=== PATIENT | male | born 1940 | race Caucasian/White ===

== ENCOUNTER 2020-01-10 11:06 | Outpatient (CLI) | payer MEDICARE, SELFPAY ==
--- NOTE | ~2020-01-10 | XR_ITS ---
EXAMINATION: XR chest 2V EXAM DATE: 01/10/2020 11:32 INDICATION: Dyspnea. Checking for CHF. TECHNIQUE: Frontal and lateral projections of the chest obtained and reviewed. Comparison is made to prior examination from 09/03/2019. FINDINGS: There is possible 1 cm nodule projecting over the spine on the lateral projection. Follow- up nonemergent chest CT is recommended. No acute airspace disease, pneumothorax or pleural effusion. Cardiomediastinal silhouette is normal. IMPRESSION: Indeterminate nodular density; follow-up nonemergent chest CT. No acute findings. Reviewed, dictated and finalized at location A. ING SAFETY OFFICER
[2020-01-10 11:23] LABS: Basophils Absolute Auto 0.12 K/mm3 (0.00-0.10); Basophils Percent Auto 1.4 % (0.0-1.0); Eosinophils Absolute Auto 0.35 K/mm3 (0.02-0.50); Eosinophils Percent Auto 4.2 % (1.0-6.0); Hematocrit 44.2 % (37.0-46.0); Hemoglobin 15.2 g/dL (12.4-15.3); Immature Granulocyte Absolute 0.03 K/mm3 (0.00-0.00); Immature Granulocyte Percent A 0.4 % (0.0-0.0); Lymphocytes Absolute Auto 2.13 K/mm3 (1.10-4.50); Lymphocytes Percent Auto 25.4 % (18.0-42.0); Mean Corpuscular HGB Conc 34.4 g/dL (32.0-36.0); Mean Corpuscular Hemoglobin 31.6 pg (27.0-31.0); Mean Corpuscular Volume 91.9 fL (78.0-102.0); Mean Platelet Volume 9.6 fl (8.7-11.0); Monocytes Absolute Auto 1.21 K/mm3 (0.10-0.90); Monocytes Percent Auto 14.4 % (2.0-11.0); Neutrophils Absolute Auto 4.6 K/mm3 (1.7-7.2); Neutrophils Percent Auto 54.2 % (50.0-70.0); Platelet Count Result 284 K/mm3 (150-420); Red Blood Count 4.81 M/mm3 (4.70-6.10); Red Cell Distribution Width 14.3 % (11.6-14.4); White Blood Count 8.4 K/mm3 (4.8-10.8)
[2020-01-10 11:34] LABS: Anion Gap 16.4 mmol/L (7-16); Blood Urea Nitrogen 21 mg/dL (7-18); Calcium 9.1 mg/dL (8.5-10.1); Carbon Dioxide 25 mmol/L (21-32); Chloride 102 mmol/L (98-108); Estimated Glomerular Filt Rate 56; Glucose 216 mg/dL (70-99); Osmolality Calculated 298 mOsm/kg (285-295); Potassium 4.4 mmol/L (3.5-5.1); Sodium 139 mmol/L (136-145)
[2020-01-10 11:44] LABS: BNP 212 pg/mL (0-100)
== END 2020-01-10 11:07 | disposition home or self-care (01) ==
LOC: CHSLAB 11:12
PROVIDERS: PCP Internal Medicine; Visit Provider Internal Medicine
DX: R06.00 Dyspnea, unspecified (principal); I50.9 Heart failure, unspecified
CPT/HCPCS: 36415; 71046; 80048; 83880; 85025

== ENCOUNTER 2020-01-14 09:24 | Outpatient (CLI) | payer MEDICARE, SELFPAY ==
--- NOTE | ~2020-01-14 | CT_ITS ---
EXAMINATION: CT chest wo con DATE: 01/14/2020 09:46 INDICATION: Pulmonary nodule TECHNIQUE: Computed tomography (CT) of the chest was performed without intravenous contrast. The dose -length product (DLP) was 500.94 mGy-cm. Automated exposure control and iterative reconstruction tech [employer] were employed. COMPARISON: 01/10/2020 FINDINGS: There is a prominent osteophyte on the right at T8-9 which accounts for the radiographic fi nding in question. The lungs are free of acute opacities. There is no pleural effusion or pneumothora x. A 3 mm nodule is noted in the lingula on image 62. No pathologically enlarged thoracic lymph nodes are identified. The heart size is normal. There is severe thoracic spondylosis. There is a compressi on fracture of the T12 vertebral body. IMPRESSION: 1. Thoracic osteophyte accounting for the questionable pulmonary nodule on recent chest radiograph. 2. Severe thoracic spondylosis with T12 compression fracture. Reviewed, dictated and finalized at location A. TYPE CASTER IMPRESSION: 1. Thoracic osteophyte accounting for the questionable pulmonary nodule on rece nt chest radiograph. 2. Severe thoracic spondylosis with T12 compression fracture.
== END 2020-01-14 09:25 | disposition home or self-care (01) ==
LOC: CHSIMG 09:27
PROVIDERS: PCP Internal Medicine; Visit Provider Internal Medicine
DX: R91.1 Solitary pulmonary nodule (principal)
CPT/HCPCS: 71250

== ENCOUNTER 2020-12-23 10:29 | Outpatient (CLI) | payer MEDICARE, SELFPAY ==
--- NOTE | ~2020-12-23 | XR_ITS ---
EXAMINATION: XR chest 2V DATE: 12/23/2020 10:53 INDICATION: COVID-19 pneumonia. TECHNIQUE: Frontal and lateral views of the chest were obtained. COMPARISON: Chest 2 views 01/10/2020, chest CT 01/14/2020 FINDINGS: There is a diffuse interstitial pattern in the lungs. No pleural effusion or pneumothorax. The heart size is normal. IMPRESSION: 1. New diffuse interstitial pattern in the lungs, consistent with atypical pneumonia (such as COVID-1 9 pneumonia) versus mild pulmonary edema. Reviewed, dictated and finalized at location A. ECTOR WIRE ROPE IMPRESSION: 1. New diffuse interstitial pattern in the lungs, consistent with atypical pneu monia (such as COVID-19 pneumonia) versus mild pulmonary edema.
== END 2020-12-23 10:30 | disposition home or self-care (01) ==
PROVIDERS: PCP Internal Medicine; Visit Provider Internal Medicine
DX: U07.1 COVID-19 (principal); J12.82 Pneumonia due to coronavirus disease 2019
CPT/HCPCS: 71046

== ENCOUNTER 2021-01-08 18:10 | Emergency (ER) | payer MEDICARE, SELFPAY ==
[2021-01-08] VITALS (9 sets, daily range): BP systolic 144–166; BP diastolic 89–114; PULSE 88–110; RESP 18–22; TEMP 36.8–37; O2SAT 95–100
--- NOTE | ~2021-01-08 | XR_ITS ---
EXAMINATION: XR chest 2V EXAM DATE: 01/08/2021 18:41 INDICATION: SOB, cough, recent pneumonia, H/O AFIB. TECHNIQUE: Frontal and lateral projections of the chest obtained and reviewed. Comparison is made to prior examination from 12/23/2020. FINDINGS: Small amount of ill-defined bilateral infrahilar airspace disease, atelectasis or infectio n again noted. Accounting for differences in technique, there is no significant interval change. Ther e is no pneumothorax suspected. There are no pleural effusions. The mild lower thoracic compression f racture. IMPRESSION: Persistent small amount of ill-defined basilar predominant atelectasis or infection. Reviewed, dictated and finalized at location A. RUMENTATION CONTROLS ENGINEER IMPRESSION: Persistent small amount of ill-defined basilar predominant atelect asis or infection.
--- NOTE | ~2021-01-08 | CT_ITS ---
EXAMINATION: CTA chest PE protocol EXAM DATE: 01/08/2021 20:38 INDICATION: Dyspnea with Elevated D dimer elevated ddimer, increased SOB, cough, recent pneumonia. Re cent COVID diagnosis. TECHNIQUE: Spiral CTA of the chest (pulmonary arteries) was performed with 100 cc Omnipaque 350 intr avenous contrast injection. Images were acquired during the pulmonary arterial phase. Coronal maxi mum intensity projection 3D-reconstructions were created by the technologist on dedicated workstation . Axial, coronal and sagittal reformatted images were reviewed. The dose-length product (DLP) for t his examination was 1118.67 mGy-cm. The exposure was tailored according to patient size (auto mA ex posure control), and iterative reconstruction (ASIR) was used as additional dose reduction technique. Comparison is made to prior examination from 01/14/2020. FINDINGS: There are no pulmonary emboli in the 1st through 3rd order (central and interlobar) pulmon gera arteries. There is loss of attenuation in the segmental pulmonary arteries due to respiratory mot ion, right basilar segmental arteries cannot be evaluated. No thoracic aortic dissection. Bilatera l patchy ill-defined groundglass airspace disease which could be infection and/or edema. Moderate bi lateral nonloculated pleural effusions. Tracheobronchial tree is patent. There is no mediastinal, hilar or axillary lymphadenopathy. There is no pneumothorax. Cardiomegaly. There is mild coronar y arterial calcification, arterial sclerosis. Upper abdomen is unremarkable. Mild to moderate comp ression fracture at T12 which appears chronic. IMPRESSION: 1. No central pulmonary emboli. Right basilar segmental vessels are not well evaluated. 2. Cardiomegaly, groundglass density airspace disease which could be edema and/or infection. 3. Moderate bilateral nonloculated pleural effusions. Reviewed, dictated and finalized at location A. BODY ESTIMATOR IMPRESSION: 1. No central pulmonary emboli. Right basilar segmental vessels are not well e valuated. 2. Cardiomegaly, groundglass density airspace disease which could be edema and /or infection. 3. Moderate bilateral nonloculated pleural effusions.
--- NOTE | 2021-01-08 18:22 | ECG_ITS ---
Measurements Intervals [place] Rate: 96 P: NC: 0 QRS: 9 QRSD: 89 T: 30 QT: 359 QTc: 455 Interpretive Statements ATRIAL FIBRILLATION CANNOT RULE OUT SEPTAL INFARCT, AGE INDETERMINATE BORDERLINE T WAVE ABNORMALITY- INFERIOR LEADS BASELINE ARTIFACT- I, II, III, AVF, V1-V4 ABNORMAL ECG Electronically Signed On 01-08-2021 19:06:53 COVERING AND LINING SUPERVISOR by Canelo Lancaster D.O.
--- NOTE | 2021-01-08 18:42 | PC.NURSE ---
Pts daughter and pt refusing iv access and to have covid swab done. pt and daughter state that he had covid in october. edp aware.
[2021-01-08 19:34] LABS: Basophils Absolute Auto 0.17 K/mm3 (0.00-0.10); Basophils Percent Auto 2.1 % (0.0-1.0); Eosinophils Absolute Auto 0.65 K/mm3 (0.02-0.50); Eosinophils Percent Auto 7.8 % (1.0-6.0); Hemoglobin 12.1 g/dL (12.4-15.3); Immature Granulocyte Absolute 0.03 K/mm3 (0.00-0.00); Immature Granulocyte Percent A 0.4 % (0.0-0.0); Lymphocytes Absolute Auto 2.36 K/mm3 (1.10-4.50); Lymphocytes Percent Auto 28.5 % (18.0-42.0); Mean Corpuscular HGB Conc 33.6 g/dL (32.0-36.0); Mean Corpuscular Hemoglobin 33.1 pg (27.0-31.0); Mean Corpuscular Volume 98.4 fL (78.0-102.0); Mean Platelet Volume 10.3 fl (8.7-11.0); Monocytes Absolute Auto 0.83 K/mm3 (0.10-0.90); Neutrophils Absolute Auto 4.3 K/mm3 (1.7-7.2); Neutrophils Percent Auto 51.2 % (50.0-70.0); Platelet Count Result 333 K/mm3 (150-420); Red Blood Count 3.66 M/mm3 (4.70-6.10); Red Cell Distribution Width 16.6 % (11.6-14.4); White Blood Count 8.3 K/mm3 (4.8-10.8)
[2021-01-08 19:36] LABS: Alveolar/Arterial O2 Gradient 30.6 mmHg; Base Excess ABG -2.1 mmol/L (0-2); Fractional Inspired Oxygen 21 %; HCO3 ABG 21.9 mmol/L (23-29); Oxygen Content ABG 17.5 %vol (16.0-22.0); Oxygen Saturation ABG 95.7 % (95-97); Oxyhemoglobin 94.6 % (94-100); PCO2 ABG 35.2 mmHg (35-45); PO2 FiO2 Ratio Arterial Blood 3.67 %; Total Hemoglobin 13.1 g/dL; pH ABG 7.41 (7.35-7.45)
[2021-01-08 19:37] LABS: Device ROOM AIR; Modified Allen's Test Pass; Site Drawn LEFT RADIAL
[2021-01-08 19:42] LABS: Add Urine Microscopic? YES; Appearance Urine Clear (Clear); Bilirubin Urine Negative (Negative); Blood Urine Negative (Negative); Color Urine Yellow (Yellow); Glucose Urine UA Negative (Negative); Ketones Urine Negative (Negative); Leukocyte Esterase Ur Trace LEU/UL (Negative); Nitrate Urine Negative (Negative); Protein Urine Negative (Negative); Specific Grav Ur 1.015 (1.010-1.020); Urobilinogen Urine 0.2 mg/dL (0.2-1.0); pH Urine 6.5 (5.0-8.0)
[2021-01-08 19:42] LABS: INR 1.1; Partial Thromboplastin Time 29.6 SEC (23.90-30.70); Prothrombin Time 11.9 Seconds (9.50-12.10)
[2021-01-08 19:45] LABS: Alanine Aminotransferase 10 U/L (16-63); Albumin Level 3.8 g/dL (3.4-5.0); Alkaline Phosphatase 76 U/L (46-116); Anion Gap 10 mmol/L (8-16); Aspartate Amino Transferase 14 U/L (15-37); Bilirubin,Total 0.9 mg/dL (0.00-1.00); Blood Urea Nitrogen 19 mg/dL (7-18); Calcium 9.6 mg/dL (8.5-10.1); Carbon Dioxide 27 mmol/L (21-32); Chloride 103 mmol/L (98-108); Estimated Glomerular Filt Rate 54; Glucose 85 mg/dL (70-99); Magnesium 2.1 mg/dL (1.8-2.4); Osmolality Calculated 291 mOsm/kg (285-295); Potassium 4.1 mmol/L (3.5-5.1); Sodium 140 mmol/L (136-145); Total Protein 7.4 g/dL (6.4-8.2); Troponin I 23.7 ng/L (0.00-60.4)
[2021-01-08 19:46] LABS: D Dimer 1.01 mg/L (0.19-0.50)
[2021-01-08 19:48] LABS: Lactic Acid Reflex 1.8 mmol/L (0.4-2.0)
[2021-01-08 19:49] LABS: RBC Urine 0-2 /hpf (0-2); Squamous Epithelial Cell Urine Rare /hpf (Few); WBC Urine 0-3 /hpf (0-3)
[2021-01-08 19:50] LABS: Bacteria Urine None seen /hpf
[2021-01-08 19:55] LABS: BNP 132 pg/mL (0-100)
--- NOTE | 2021-01-08 21:14 | ED.SOB ---
HPI - SOB/Dyspnea General Chief Complaint: Shortness of Breath/Dyspnea Stated Complaint: trouble breathing Source: patient and family Mode of arrival: ambulatory Limitations: no limitations History of Present Illness HPI Narrative: this is a 80-year-old gentleman that has a history of atrial fibrillation is currently on Eliquis, for his atrial fibrillation presents with increased shortness of breath for the last 3 days family and patient state that he has not had an increasing shortness of breath aegis has persistent mild to moderate shortness of breath O2 sats currently at 95% breathing comfortably lung some mildly diminished at bilateral bases. There is no fever or chills no chest pain no abdominal pain there is no cough. The patient recently earlier this month had a episode of COVID, patient family refused to have a repeat COVID test. MD elicited complaint: shortness of breath Pertinent past history: COPD Onset (ago): day(s) Context: recent illness Timing: intermittent Severity: moderate Exacerbating factors: movement Related Data Home Medications Medication Instructions Recorded Confirmed albuterol sulfate [ProAir HFA] 2 puff INHALATION PRN PRN 01/08/21 01/08/21 apixaban [Eliquis] 5 mg PO BID 01/08/21 01/08/21 atorvastatin 40 mg PO DAILY 01/08/21 01/08/21 docusate sodium [Colace] 100 mg PO BID 01/08/21 01/08/21 fluticasone furoate-vilanterol 1 inh INHALATION BID 01/08/21 01/08/21 [Breo Ellipta] loratadine [Claritin] 10 mg PO DAILY 01/08/21 01/08/21 losartan-hydrochlorothiazide 1 tablet PO DAILY 01/08/21 01/08/21 Allergies Allergy/AdvReac Type Severity Reaction Status Date / Time No Known Allergies Allergy Unverified 09/20/17 08:53 Review of Systems Review of Systems: All systems reviewed & are unremarkable except as noted in HPI and below PMFSH Past Medical History Medical History Atrial fibrillation COPD (chronic obstructive pulmonary disease) History of stroke Social History Social History Smoking status: Never smoker Alcohol intake: current Exam Const: General: no acute distress and alert Orientation/consciousness: patient oriented x3 HENMT: Head: normal to inspection Eyes: Conjunctivae: conjunctivae normal Pupils: Equal, round and reactive pupils present Course Course Emergency Course: reassessment of patient after repeat CV a breathing treatment continues to have O2 sats 96% with a respiratory rate of 18, explained to family that had an elevated D-dimer and CTA was performed which did show no pulmonary embolism but did show non loculated pleural effusions moderate in size bilaterally. The patient's family refused admission and were advised to follow-up with his trade specialist as soon as possible, and according to his daughter they will make an appointment for tomorrow and requested labs and a disc of the CT a further pulmonary doctor. Patient currently is resting comfortably the rest of his labs an EKG read your were reviewed with patient and family. Vital Signs Vital signs: Vital Signs Temperature 36.8 C 01/08/21 18:20 Pulse Rate 110 H 01/08/21 18:20 Respiratory Rate 22 H 01/08/21 18:20 Blood Pressure 166/98 H 01/08/21 18:20 Pulse Oximetry 95 01/08/21 18:20 Temperature 36.8 C 01/08/21 18:20 Pulse Rate 110 H 01/08/21 18:20 Respiratory Rate 22 H 01/08/21 18:20 Blood Pressure 166/98 H 01/08/21 18:20 Pulse Oximetry 95 01/08/21 18:20 MDM - SOB/Dyspnea Lab Data Result diagrams: 01/08/21 18:50 01/08/21 18:50 Labs: Lab Results 01/08/21 01/08/21 01/08/21 Range/Units 18:45 18:50 18:50 WBC 8.3 (4.8-10.8) K/mm3 RBC 3.66 L (4.70-6.10) M/mm3 Hgb 12.1 L (12.4-15.3) g/dL Hct 36.0 L (37.0-46.0) % MCV 98.4 (78.0-102.0) fL MCH 33.1 H (27.0-31.0) pg MCHC 33.6 (32.0-36.0) g/dL RD
[2021-01-08] MEDS: IPRATROPIUM 0.5 MG/ALBUTEROL SULFATE 2.5 MG AMPUL.NEB 3 ML (21:16)
== END 2021-01-08 21:32 | disposition home or self-care (01) ==
PROVIDERS: Emergency Provider Emergency Medicine; PCP Internal Medicine
DX: J90 Pleural effusion, not elsewhere classified (principal); I48.91 Unspecified atrial fibrillation; J44.9 Chronic obstructive pulmonary disease, unspecified; Z86.73 Personal history of transient ischemic attack (TIA), and cerebral infarction without residual deficits
CPT/HCPCS: 36415; 36600; 71046; 71275; 80053; 81001; 82805; 83605; 83735; 83880; 84484; 85025; 85380; 85610; 85730; 87040; 93005; 94640; 99283; 99284; Q9967

== ENCOUNTER 2023-04-14 08:09 | Outpatient (CLI) | payer MEDICARE, SELFPAY ==
--- NOTE | ~2023-04-14 | XR_ITS ---
Left Knee Technique: AP, lateral, and oblique views were obtained. Clinical History: Pain Findings: No fracture or dislocation is seen. There is moderate degenerative narrowing of the lateral compartment. There is mild tricompartmental osteophyte formation. Probable moderate narrowing of the patellofemoral compartment. Soft tissues are unremarkable. No joint effusion is seen. Impression: Moderate degenerative change of the lateral and patellofemoral compartment. Mild degenerative change of the lateral compartment. Reviewed, dictated and finalized at location . Impression: Moderate degenerative change of the lateral and patellofemoral compartment. Mild degenerative change of the lateral compartment.
--- NOTE | ~2023-04-14 | XR_ITS ---
Right ankle Technique: AP, oblique, and lateral views were obtained. Clinical History: Pain Findings: No acute fracture or dislocation is seen. There is severe degenerative change of the tibiot alar joint. Soft tissues are otherwise unremarkable. 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 Reviewed, dictated and finalized at location . 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
--- NOTE | ~2023-04-14 | XR_ITS ---
Left ankle Technique: AP, oblique, and lateral views were obtained. Clinical History: Pain Findings: No acute fracture or dislocation is seen. There is severe osteoarthritis of the tibiotalar joint, with marked, diffuse joint space narrowing and marked osteophyte formation. There is also prob able degenerative change of the distal tibiofibular articulation. Suggestion of heterotopic ossificat ion across the distal tibiofibular syndesmosis.. 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 Degenerative change of the distal tibiofibular articular relation with possible heterotopic ossificat ion across the distal syndesmosis. Reviewed, dictated and finalized at location M. 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 Degenerative change of the distal tibiofibular articular relation with possible heterotopic ossification across the distal syndesmosis.
== END 2023-04-14 08:10 | disposition home or self-care (01) ==
PROVIDERS: PCP Internal Medicine; Visit Provider Internal Medicine
DX: M25.571 Pain in right ankle and joints of right foot (principal); M25.572 Pain in left ankle and joints of left foot; M19.072 Primary osteoarthritis, left ankle and foot; M19.071 Primary osteoarthritis, right ankle and foot
CPT/HCPCS: 73562; 73610

== ENCOUNTER 2023-07-07 00:25 | Day surgery (SDC) | payer MEDICARE, SELFPAY ==
[2023-06-27 09:38] VITALS: BMI 37.2
[2023-07-07 10:07] VITALS: BMI 33.8
--- NOTE | 2023-07-07 10:08 | P.HP_ITS ---
History of Present Illness History of Present Illness Consent: Risks, benefits, and alternatives have been discussed and questions answered. Patient agrees to proceed with procedure. Chief complaint: hx colon polyps Narrative: Karly Ashby is a 82 year old male Presents for screening colonoscopy. Patient was found to have adenomatous colon polyps at the time of most recent colonoscopy 2016. Patient presents today for screening colonoscopy surveillance exam after previous exam. Patient reports his current weight appetite and bowel movements are normal. Patient denies abdominal pain. He has had no bleeding. Family history noncontributory. Review of Systems Review of Systems: Review of systems noncontributory. [facility] Past Medical History Medical History Atrial fibrillation COPD (chronic obstructive pulmonary disease) History of stroke Social History Social History Smoking status: Never smoker Alcohol intake: current Alcohol use details: seldom Substance use: never Substance use type: does not use Living arrangements: with family Spiritual care concerns: No Meds Home Medications and Allergies Home Medications Medication Instructions Recorded Confirmed Type apixaban 5 mg tablet (Eliquis) 5 mg PO BID 01/08/21 06/27/23 History atorvastatin 40 mg tablet 40 mg PO DAILY 01/08/21 06/27/23 History docusate sodium 100 mg capsule 100 mg PO BID 01/08/21 06/27/23 History (Colace) loratadine 10 mg tablet (Claritin) 10 mg PO DAILY 01/08/21 06/27/23 History losartan 100 1 tablet PO DAILY 01/08/21 06/27/23 History mg-hydrochlorothiazide 25 mg tablet sodium,potassium,mag sulfates 17.5 See Rx Instructions PO .COMPLEX 06/07/23 06/27/23 Rx gram-3.13 gram-1.6 gram oral soln #354 mL (Suprep Bowel Prep Kit) glimepiride 2 mg tablet 1 mg PO BID 06/27/23 06/27/23 History Allergies Allergy/AdvReac Type Severity Reaction Status Date / Time No Known Allergies Allergy Verified 06/27/23 09:35 Exam Narrative: Physical exam reveals patient to be alert. Vital signs stable. HEENT exam is unremarkable. Patient is anicteric. Lungs are clear to auscultation and percussion. Heart is without murmur or extra sounds. Abdomen bowel sounds are present soft nontender with no organomegaly. Digital external rectal exam is normal. Assessment and Plan Assessment and plan (1) History of colon polyps: Code(s): Z86.010 - Personal history of colonic polyps Status: Acute Assessment and Plan: Patient presents today for screening colonoscopy. He does have a prior history of colon polyps. Further recommendations may be given after endoscopy.
--- NOTE | 2023-07-07 10:14 | P.PNAN_ITS ---
Anes - Initial Pre Proc Eval Procedure: Operation Date: 07/07/23 11:30 Proposed Procedures p Colonoscopy - Santy Sanderson MD Date/Time: 07/07/23 10:14 Surgeon: Santy Sanderson MD Pre Op Diagnosis: hx colon polyps Patient Data Age: 82 Gender: M Height: 1.85 m Weight: 116.4 kg Allergies Allergy/AdvReac Type Severity Reaction Status Date / Time No Known Allergies Allergy Verified 06/27/23 09:35 Home Medications Medication Instructions Recorded Confirmed Type apixaban 5 mg tablet (Eliquis) 5 mg PO BID 01/08/21 06/27/23 History atorvastatin 40 mg tablet 40 mg PO DAILY 01/08/21 06/27/23 History docusate sodium 100 mg capsule 100 mg PO BID 01/08/21 06/27/23 History (Colace) loratadine 10 mg tablet (Claritin) 10 mg PO DAILY 01/08/21 06/27/23 History losartan 100 1 tablet PO DAILY 01/08/21 06/27/23 History mg-hydrochlorothiazide 25 mg tablet sodium,potassium,mag sulfates 17.5 See Rx Instructions PO .COMPLEX 06/07/23 06/27/23 Rx gram-3.13 gram-1.6 gram oral soln #354 mL (Suprep Bowel Prep Kit) glimepiride 2 mg tablet 1 mg PO BID 06/27/23 06/27/23 History Patient hx anesthesia problems: none Family hx anesthesia problems: none Results Review: All pre-operative results and documents have been reviewed as part of the pre- operative evaluation. [facility] Past Medical History Medical History Atrial fibrillation COPD (chronic obstructive pulmonary disease) History of stroke Social History Social History Smoking status: Never smoker Alcohol intake: current Alcohol use details: seldom Substance use: never Substance use type: does not use Living arrangements: with family Spiritual care concerns: No Anes - Eval Final PreProcedure Day of Procedure 07/07/23 10:14 Patient weight: obese Heart: regular rate and rhythm Lungs: clear to auscultation Airway: Mallampati scale class III Neurological: alert and oriented Last oral intake: >/= 8 hours ASA classification: III Emergent: no Anesthetic plan: proceed Anesthesia type and monitoring: general GIVS and standard monitoring Results Review: All pre-operative results and documents have been reviewed as part of the pre- operative evaluation. Informed Consent: The patient's anesthetic plan and its attendant risks and benefits were discussed with the patient/family/POA. Questions were solicited and answers provided to the satisfaction of the patient/family/POA.
[2023-07-07 10:18] VITALS: BP 142/77; PULSE 76; RESP 18; TEMP 36.4; O2SAT 100; BMI 33.8
--- NOTE | 2023-07-07 10:29 | P.PNAN_ITS ---
Anes - Initial Pre Proc Eval Procedure: Operation Date: 07/07/23 11:30 Proposed Procedures p Colonoscopy - Santy Sanderson MD Date/Time: 07/07/23 10:29 Surgeon: Santy Sanderson MD Pre Op Diagnosis: hx colon polyps Patient Data Age: 82 Gender: M Height: 1.85 m Weight: 116.4 kg Last Vital Signs Temp 97.6 F 07/07/23 10:18 Pulse 76 07/07/23 10:18 Resp 18 07/07/23 10:18 BP 142/77 H 07/07/23 10:18 Pulse Ox 100 07/07/23 10:18 O2 Del Method Room Air 07/07/23 10:18 Allergies Allergy/AdvReac Type Severity Reaction Status Date / Time No Known Allergies Allergy Verified 06/27/23 09:35 Home Medications Medication Instructions Recorded Confirmed Type apixaban 5 mg tablet (Eliquis) 5 mg PO BID 01/08/21 07/07/23 History atorvastatin 40 mg tablet 40 mg PO DAILY 01/08/21 07/07/23 History docusate sodium 100 mg capsule 100 mg PO BID 01/08/21 07/07/23 History (Colace) loratadine 10 mg tablet (Claritin) 10 mg PO DAILY 01/08/21 07/07/23 History losartan 100 1 tablet PO DAILY 01/08/21 07/07/23 History mg-hydrochlorothiazide 25 mg tablet glimepiride 2 mg tablet 1 mg PO BID 06/27/23 07/07/23 History Patient hx anesthesia problems: none Family hx anesthesia problems: none Results Review: All pre-operative results and documents have been reviewed as part of the pre- operative evaluation. [facility] Past Medical History Medical History Atrial fibrillation COPD (chronic obstructive pulmonary disease) History of stroke Social History Social History Smoking status: Never smoker Alcohol intake: current Alcohol use details: seldom Substance use: never Substance use type: does not use Living arrangements: with family Spiritual care concerns: No Anes - Eval Final PreProcedure Day of Procedure 07/07/23 10:29 Patient weight: obese Heart: irregular rhythm Lungs: clear to auscultation Airway: Mallampati scale class III Neurological: alert and oriented Last oral intake: >/= 8 hours ASA classification: III Emergent: no Anesthetic plan: proceed Anesthesia type and monitoring: general GIVS and standard monitoring Results Review: All pre-operative results and documents have been reviewed as part of the pre- operative evaluation. Informed Consent: The patient's anesthetic plan and its attendant risks and benefits were discussed with the patient/family/POA. Questions were solicited and answers provided to the satisfaction of the patient/family/POA.
[2023-07-07] MEDS: LACTATED RINGERS 1,000 ML 150 ML IV CONT (10:37)
[2023-07-07 10:38] LABS: Glucose Point of Care 102 mg/dl (65-105)
[2023-07-07 10:58] VITALS: BP 114/71; PULSE 95; RESP 19; O2SAT 98
[2023-07-07 11:08] VITALS: BP 109/64; PULSE 99; RESP 19; O2SAT 97
[2023-07-07 11:18] VITALS: BP 119/70; PULSE 95; RESP 18; O2SAT 98
== END 2023-07-07 11:30 | disposition home or self-care (01) ==
PROVIDERS: PCP Internal Medicine; Visit Provider Internal Medicine Gastroenterology
PROC: 0DJD8ZZ Inspection of Lower Intestinal Tract, Via Natural or Artificial Opening Endoscopic (ICD-10-PCS; CPT 45378; principal; 2023-07-07 11:30)
DX: Z12.11 Encounter for screening for malignant neoplasm of colon (principal); D12.2 Benign neoplasm of ascending colon; K64.8 Other hemorrhoids; I48.91 Unspecified atrial fibrillation; J44.9 Chronic obstructive pulmonary disease, unspecified; Z86.73 Personal history of transient ischemic attack (TIA), and cerebral infarction without residual deficits; Z79.01 Long term (current) use of anticoagulants; E66.9 Obesity, unspecified; Z68.33 Body mass index [BMI] 33.0-33.9, adult
CPT/HCPCS: 45380; 82948; 88305; J2704; J7120

== ENCOUNTER 2024-04-02 14:07 | Outpatient (CLI) | payer MEDICARE, SELFPAY ==
--- NOTE | ~2024-04-02 | XR_ITS ---
XR shoulder LT min 2V DATE: 04/02/2024 14:40 INDICATION: Left chronic shoulder pain TECHNIQUE: 3 views COMPARISON: None FINDINGS: There is osteopenia. Levoscoliosis and degenerative spurring of the thoracic spine. The humeral head abuts the undersurface of the acromion process consistent with rotator cuff tear and /or atrophy. There is severe glenohumeral joint space narrowing with spurring at the glenohumeral joint consistent with severe osteoarthritis. No fracture, dislocation, periosteal reaction or bone destruction or significant abnormal soft tissue calcification is noted. IMPRESSION: Left rotator cuff tear and/or atrophy Severe left glenohumeral osteoarthritis Osteopenia Reviewed, dictated and finalized at location A.
== END 2024-04-02 14:08 | disposition home or self-care (01) ==
PROVIDERS: PCP Internal Medicine; Visit Provider Internal Medicine
DX: M25.512 Pain in left shoulder (principal); M75.102 Unspecified rotator cuff tear or rupture of left shoulder, not specified as traumatic; M19.012 Primary osteoarthritis, left shoulder; M85.88 Other specified disorders of bone density and structure, other site
CPT/HCPCS: 73030

== ENCOUNTER 2025-05-31 15:20 | Outpatient (CLI) | payer MEDICARE, SELFPAY ==
--- NOTE | ~2025-05-31 | CT_ITS ---
CT abdomen pelvis w con Ordering provider: Ella Merchant MD History: 84 years Male with . acute right flank pain/ low back pain x1 week . Comparison: None. Technique: CT abdomen and pelvis with IV and without oral contrast. Automated exposure control and it erative reconstruction technique were employed. The dose-length product was 1479.57 mGy-cm. 100 mL Om nipaque 350 was given IV. Findings: VISUALIZED LOWER CHEST: Nodule measuring 8 mm is seen in the middle lobe. Three-month follow-up CT is advised. Nodule in the left lower lobe is also noted measuring 7 mm. UPPER ABDOMINAL ORGANS: Liver: Normal. Gallbladder: Possible small density near to the neck of the gallbladder. Ultrasound evaluation advise d. Spleen: Normal. Stomach/duodenum: Normal. Pancreas: Atrophic. Adrenals: Possible small adenoma in both adrenal glands. No follow-up advised unless clinically warra nted. Kidneys: Soft tissue density is seen in the left kidney lower pole measuring 1.6 cm. Mass cannot be e xcluded. Follow-up advised. Scarring is seen in the right kidney midpole. Minimal fullness of the rig ht renal pelvis with no definite stones. PELVIC ORGANS: The bladder shows thickened wall with slight enhancement. This may indicate cystitis. Clinical correlation advised. Slightly enlarged prostate. BOWEL AND MESENTERY: Colon: No evidence of diverticulitis. Fecal material is loaded in the colon.. Normal appendix. Small Bowel: Normal. No obstruction. Peritoneum/mesentery: No free air. Trace of free fluid seen anterior to the sacrum. No mesenteric lym phadenopathy. RETROPERITONEUM: Mild atheromatous disease of the abdominal aorta. No retroperitoneal lymphadenopat hy. MUSCULOSKELETAL: Superficial soft tissues: Bilateral inguinal lymph node enlargement with normal anatomy. The left madeline sures 2.8 and the right measures 2.5 cm. Otherwise, The superficial soft tissues are normal. Bones: Compression fracture of T12 is noted which may be acute or chronic. Sclerotic changes seen in the T12 vertebra. Pathological fracture cannot be excluded. Hypodensities are also seen in other vert ebrae. MRI evaluation is advised. Age appropriate degenerative changes of the spine. Bilateral sacroi liacs. Right hip arthroplasty. Left hip osteoarthritic changes. IMPRESSION: 1. No evidence of appendicitis, diverticulitis or intestinal obstruction. 2. Possible gallbladder stone. Ultrasound evaluation advised. 3. Slightly thickened urinary bladder wall. Cystitis is highly suggestive. Further evaluation advise d. 6 lobe infiltrative process.. Minimal fullness in the right renal pelvis. 4. Enlarged prostate 5. Bilateral tiny adrenal adenomas. No follow-up advised. 6. Soft tissue density in the left kidney lower pole which may be a mass measuring 1.6 cm. Follow-up advised. 7. Bilateral inguinal lymphadenopathy. 8. Constipation. 9. Compression fracture of T12 which is a sclerotic with possible hypodensity is in the other verteb judi. Metastatic disease should be considered. Further evaluation advised. Reviewed, dictated and finalized at location A. IMPRESSION: 1. No evidence of appendicitis, diverticulitis or intestinal obstruction. 2. Possible gallbladder stone. Ultrasound evaluation advised. 3. Slightly thickened urinary bladder wall. Cystitis is highly suggestive. Fur ther evaluation advised. 6 lobe infiltrative process.. Minimal fullness in the right renal pelvis. 4. Enlarged prostate 5. Bilateral tiny adrenal adenomas. No follow-up advised. 6. Soft tissue density in the left kidney lower pole which may be a mass measu ring 1.6 cm. Follow-up advised. 7. Bilateral inguinal lymphadenopathy. 8. Constipation. 9. Compression fracture of T12 which is a sclerotic with possible hypodensity is in the other vertebrae. Metastatic disease should be considered. Further navya luation advised.
--- NOTE | ~2025-05-31 | XR_ITS ---
HISTORY: Rt. hip pain x1 week COMPARISON: None TECHNIQUE: 2 views of the right hip along with an AP view of the pelvis FINDINGS: A right total hip prosthetic is identified. No periprosthetic fracture is identified within the femur. Significant lucency projecting adjacent to the acetabular component, with extensive osteophyte format ion along the superior lateral margin of the acetabular component. Superior lateral sclerosis of the left femoral acetabular joint space is present consistent with oste oarthritis. Irregular joint space narrowing detected within the pubic symphysis with sclerosis. Degenerative disease within the visualized portion of the lower lumbar spine. Age-appropriate bony demineralization within the remainder of the visualized osseous structures. IMPRESSION: Degenerative disease, without acute fracture. Lucency surrounding the acetabular component of the right hip for which comparison with prior imaging is needed. Reviewed, dictated and finalized at location A. IMPRESSION: Degenerative disease, without acute fracture. Lucency surrounding the acetabular component of the right hip for which compari son with prior imaging is needed.
--- NOTE | ~2025-05-31 | XR_ITS ---
3 VIEWS LUMBAR SPINE Ordering provider: Ella Merchant MD History: . low back pain x1 week . Comparison: January 30, 2019 FINDINGS: VERTEBRAL BODIES: Compression fracture is seen in T12 with loss of height of about 40% which is most likely acute. MRI is advised. Degenerative changes of the spine. Possibility of sacralization of L5 c annot be excluded. DISK SPACES: Narrowing of the disc T12-L1, L1-L2, L2-L3 and L5-S1. SOFT TISSUES: Atherosclerotic changes of the aorta. Right hip arthroplasty. IMPRESSION: Compression fracture of T12. MRI is advised. Multilevel degenerative disc disease. Reviewed, dictated and finalized at location A.
--- OUTSIDE RECORDS SUMMARY | 2025-05-31 15:26 | XMS_ITS | Clinical Summary ---
Author Organization [facility] Address [address] [place] [address] Care Team Providers Care Outsole Tacker Name Role Phone Ella Merhcant MD Primary Care Provider [phone] Allergies No known active allergies Medications ELIQUIS 5 MG tablet 5 mg 2 (two) times daily. 05/19/2020 Active atorvastatin 40 MG tablet Take 40 mg by mouth daily. 09/10/2020 Active glimepiride 2 MG tablet Take 2 mg by mouth daily. 08/12/2020 Active losartan-hydroCH LOROthiazide 100-25 MG tablet Take 1 tablet by mouth daily. 09/11/2020 Active loratadine 10 MG tablet Take 10 mg by mouth daily. Active vitamin D3, cholecalciferol, 1000 UNIT Tab tablet Take 1 tablet by mouth daily. Active docusate sodium 100 MG capsule Take 100 mg by mouth 2 (two) times daily. Active metoprolol succinate ER 200 MG 24 hr tablet Take 1 tablet (200 mg total) by mouth daily. 30 tablet 11/06/2020 Active Active Problems Problem Noted Date Diagnosed Date Pneumonia due to COVID-19 virus 11/05/2020 Atrial fibrillation ([facility]) 11/05/2020 Type 2 diabetes mellitus ([facility]) 11/05 Hypertension 11/05/2020 COVID-19 virus detected 10/31/2020 COVID-19 10/31/2020 Resolved Problems Problem Noted Date Diagnosed Date Resolved Date Encounter for rehabilitation 11/05/2020 11/07/2020 Social History Tobacco Use Types Packs/Day Years Used Date Smoking Tobacco: Never Smokeless Tobacco: Never Alcohol Use Standard Drinks/Week Comments Yes 0 (1 standard drink = 0.6 oz pur e alcohol) very little Sex and Gender Information Value Date Recorded Sex Assigned at Not on file Legal Sex Male 7:26 PM CDT Gender Identity Not on file Sexual Orientation Not on file Last Filed Vital Signs Vital Sign Reading Time Taken Comments Blood Pressure 106/73 11/07/2020 8:07 AM ASSISTANT PROFESSOR OF FORESTRY Pulse 79 11/07/2020 8:07 AM ASSISTANT PROFESSOR OF [employer]ESTRY Temperature 36.4 C (97.6 F) 11/07/2020 5:00 AM ASSISTANT PROFESSOR OF FORESTRY Respiratory Rate 18 11/07/2020 8:07 AM ASSISTANT PROFESSOR OF FORESTRY Oxygen Saturation 96% 11/07/2020 5:00 AM ASSISTANT PROFESSOR OF FORESTRY Inhaled Oxygen Concentration - - Weight 116.5 kg (256 lb 12.8 oz) 11/07/2020 5:00 AM ASSISTANT PROFESSOR OF FORESTRY Height 188 cm (6' 2) 11/05/2020 3:24 PM ASSISTANT PROFESSOR OF FORESTRY Body Mass Index 32.97 11/05/2020 3:24 PM ASSISTANT PROFESSOR OF FORESTRY Plan of Treatment Health Maintenance Due Date Last Done Comments Kidney Health Evaluation 1940 Hemoglobin A1C 1939 Diabetes: Retinopathy Eye Exam 1957 DTaP, Tdap and Td Vaccines ( 1 - Tdap) 1958 Pneumococcal Vaccine: 50+ Ye ars (1 of 2 - PCV) 1958 Zoster Vaccines (1 of 2) 1989 Annual Medicare Wellness Visit 2004 RSV Immunization or 60+ Years (1 - 1-dose 75+ series) 2014 Lipid Panel 09/22/2019 09/22/2018 COVID-19 Vaccine (1 - 2023-2 5 season) 2024 Meningococcal B Vaccine Aged Out No l onger eligible based on patient's age to complete this topic Meningococcal Vaccine Aged Out No rene na eligible based on patient's age to complete this topic RSV Immunizations Under 20 Months Aged Out No longer eligible based on patient's age to complete this topic Insurance MEDICARE [employer] Advance Directives * Full Code (Latest Code Status on File) Date Activated Date Inactivated Comments 11/05/2020 3:14 PM 11/07/2020 1:41 PM * Full Code Date Activated Date Inactivated Comments 10/31/2020 2:14 AM 11/05/2020 2:57 PM * Full Code Date Activated Date Inactivated Comments 10/31/2020 1:16 AM 10/31/2020 2:14 AM Healthcare Agents on File Name Relationship Healthcare Agent Relationshi p Communication Antoinette Ashby Daughter Health Care Agent Care Teams Outsole Tacker Relationship Specialty Start Date End Date Ella Merchant MD [address] [place] [address] PCP - General INTERNAL MEDICINE 10/30/20
--- OUTSIDE RECORDS SUMMARY | 2025-05-31 15:26 | XMS_ITS | Clinical Summary ---
Author Organization [facility] Address [address] [place] [address] Care Team Providers Care Lawn Sprinkler Servicer Name Role Phone Ella Merchant MD Primary Care Provider [phone] Lawrence Lawler MD Unavailable [phone] Mariano Hodge MD Unavailable Wei Hopkins MD Unavailable [phone] Source Comments [facility],non-owned Affiliates and Associated Physician Practices is amultiple site organization consisting of ambulatory clinics and hospital sitesin [place], [place], [place] and [place]. This disclosure is being madepursuant to the Care Everywhere program and may not contain all information available regarding this patient. Last updated 18.[facility] Allergies No known active allergies Medications * Be aware that medications may not be up to date on this document. Alwaysverify current medications with the patient. apixaban (ELIQUIS) 5 MG tablet Take 1 tablet by mouth 2 times daily 8 Active glimepiride (AMARYL) 2 MG tablet Take 1 (one) tablet by mouth once daily 9 Active PROAIR HFA 108 (90 Base) MCG/ACT inhaler 1 Active loratadine (CLARITIN) 10 MG tablet Take 1 (one) tablet by mouth once daily Active losartan-hydroCH LOROthiazide (HYZAAR) 100-25 MG tablet Take 1 (one) tablet by mouth once daily 1 Active atorvastatin (LIPITOR) 40 MG tablet take 1 tablet (40 mg) by oral route once daily 1 Active BREO ELLIPTA 100-25 MCG/INH inhalerIndicatio ns:Mild persistent asthma without complication (HCC) Inhale 1 (one) puff by mouth once daily 1 Each 11 1 Active Additional Information Patient not taking.Reported on 03/01/2025 furosemide (LASIX) 20 MG tabletIndication s:Chronic bilateral pleural effusions,Elevat ed brain natriuretic peptide (BNP) level Take 1 (one) tablet by mouth once daily 30 tablet 2 1 Active Additional Information Patient not taking.Reported on 03/01/2025 Cyanocobalamin (VITAMIN B-12 1000 MCG) [address] two tablets under tongue and let dissolve slowly without chewing or swallowing EVERY DAY 5 Active vitamin D3 (Cholecalciferol ) 25 MCG (1000 UNITS) tablet Take 1 (one) tablet by mouth once daily Active Active Problems Problem Noted Date Diagnosed Date COVID-19 virus detected 10/31/2020 Pneumonia due to COVID-19 virus 10/31/2020 Rib contusion, right, initial encounter 02/14/20 19 Asthma 01/04/2019 Overview (01/04/2019): Positive methacholine challenge 01/04/2019. 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 09/25/2018 Hemiplegic gait 09/25/2018 Cerebrovascular accident 09/24/2018 Acute lacunar stroke 09/23/2018 Speech disturbance 09/22/2018 Right sided weakness 09/22/2018 Essential (primary) hypertension 03/13/2010 Hyperlipidemia, unspecified 03/13/2010 Type 2 diabetes mellitus 03/13/2010 Sinus bradycardia 02/25/2010 Syncope and collapse 02/23/2010 Preoperative examination 11/10/2009 Atrial fibrillation Encounters Date Type Department Care Team Description 03/05/2025 Results Follow-Up [facility] - Cosmetic Dermatology [address] [place] [id number] Sena Ndiaye DO 03/01/2025 1:50 PM CDT Office Visit [facility] - Cosmetic Dermatology [address] [place] [address] Sena NdiayeDO Neoplasm of uncertain behavior (Primary Dx); Actinic keratosis; Lentigines 03/01/2025 Travel from Last 3 Months Social History Tobacco Use Types Packs/Day Years Used Date Smoking Tobacco: Never Smokeless Tobacco: Never Alcohol Use Standard Drinks/Week Comments No 0 (1 standard drink = 0.6 oz pur e alcohol) socially Sex and Gender Information Value Date Recorded Sex Assigned at Not on file Legal Sex Male 11:45 AM COREMAKER FLOOR Gender Identity Not on file Sexual Orientation Not on file Last Filed Vital Signs Vital Sign Reading Time Taken Comments Blood Pressure 135/85 01/23/2021 9:30 AM COREMAKER FLOOR Pulse 90 01/23/2021 9:30 AM [employer]EMAK[employer] FLOOR Temperature 36.9 C (98.4 F) 01/23/2021 8:39 AM COREMAKER FLOOR Respiratory Rate 24 01/23/2021 9:30 AM COREMAKER FLOOR Oxygen Saturation 93% 01/23/2021 9:30 AM COREMAKER FLOOR Inhaled Oxygen Concentration 21% 01/04/2019 1 1:11 AM COREMAKER FLOOR roomair Weight 87.1 kg (192 lb) 01/23/2021 8:39 AM [employer]EMAK[employer] FLOOR Height 188 cm (6' 2) 01/23/2021 8:39 AM [employer]EMAK[employer] FLOOR Body Mass Index 24.65 01/23/2021 8:39 AM COREMAKER FLOOR Plan of Treatment Health Maintenance Due Date Last Done Comments DTAP/TDAP/TD VACCINES (1 - Tdap) 1958 PNEUMOCOCCAL VACCINE 50+ (1 of 2 - PCV) 1958 ZOSTER VACCINE (1 of 2) 1989 Respiratory Syncytial Virus (RSV) Vaccine Pt: or over 60 yrs (1 - 1-dose 75+ series) 2014 DIABETES RETINOPATHY SCREENING 01/04/2019 DIABETES-FOOT EXAM WITH MONOFILAMENT 01/04/2019 DIABETES-HGB A1C 01/04/2019 09/22/2018, 10/25/2013 COVID-19 VACCINE ( - 2023-2 5 season) 2024 DEPRESSION SCREENING 11/21/2024 MEDICARE AWV CALENDAR YEAR 2024 INFLUENZA VACCINE (#1) 2025 HEPATITIS B VACCINE Aged Out No longe r eligible based on patient's age to complete this topic HIB VACCINE Aged Out No longer eligi ble based on patient's age to complete this topic HPV VACCINE Aged Out No longer eligi ble based on patient's age to complete this topic MENINGOCOCCAL (Group B) VACCINE SHARED DECISION-MAKING Aged Out No longer eligible based on patient's age to complete this topic MENINGOCOCCAL GROUPS A/C/Y/W VACCINE Aged Out No longer eligible b ased on patient's age to complete this topic Procedures Procedure Name Priority Date/Time Associated Diagnosis Comments NV DESTROY PREMALIG LESION, 2-14 Routine 03/01/2025 3:19 PM CDT Actinic keratosis NV DESTROY PREMALIG LESION, 1ST LESION Routine 03/01/2025 3:19 PM CDT Actinic keratosis NV TANGNTL BX SKIN SINGLE LES Routine 03/01/2025 3:18 PM CDT Neoplasm of uncertain behavior DERMATOPATHOLOGY Routine 03/01/2025 3:33 AM CDT Neoplasm of uncertain behavior HEMOGLOBIN A1C AM Draw 09/22/2018 11:29 PM CDT from Last 3 Months or Most Recently Relevant to Health Maintenance Results * NV DESTROY PREMALIG LESION, 1ST LESION, NV DESTROY PREMALIG LESION, 2-14 (03/01/2025 3:19 PM CDT) Narrative Sena Ndiaye DO - 03/01/2025 3:19 PM CDT Sena Ndiaye DO 03/01/2025 3:19 PM Diagnosis and treatment options discussed. Cryotherapy (Liquid Nitrogen) to 7 lesions for 5 to 10 seconds each. Number of cycles: 1. Wound care reviewed. Sena Ndiaye DO Sena Ndiaye DO PROCEDURE/MINOR SURGICAL ORDERA BLES Final Result * NV TANGNTL BX SKIN SINGLE LES (03/01/2025 3:18 PM CDT) Narrative Sena Ndiaye DO - 03/01/2025 3:18 PM CDT Sena Ndiaye DO 03/01/2025 3:19 PM Risks, benefits and alternatives to shave biopsy were discussed with the patient. Verbal consent was obtained. Encounter Diagnoses Name Primary? Neoplasm of uncertain behavior Yes Actinic keratosis Location: L nasal ala Skin prep: Alcohol Anesthesia: 1% lidocaine with epinephrine Hemostasis: Aluminum chloride Dressing and wound care discussed. Specimen(s) placed in a patient labeled container and sent to [facility]. Patient agrees to phone call for results and message if not available. Sena Ndiaye DO Sena Ndiaye DO PROCEDURE/MINOR SURGICAL ORDERA BLES Final Result * DERMATOPATHOLOGY (03/01/2025 3:33 AM CDT) Case Report Dermatopathology Report Case: [id number] Authorizing Provider: Sena Ndiaye DO Collected: 03/01/2025 03:33 AM Ordering Location: [facility] - Received: 03/01/2025 02:30 PM Cosmetic Dermatology Pathologist: Alice Collier MD Specimen: Skin, L nasal ala 1:36 PM CDT DERMATOPATHOLOGY LABORATORY Final Diagnosis Specimen A. 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 The specimen consists of a shave biopsy measuring 4x4x2 mm. Jar 0. 1:36 PM CDT DERMATOPATHOLOGY LABORATORY Microscopic Description Specimen A. SKIN, Left nasal ala: This dome-shaped lesion contains dilated blood vessels, coarse collagen bundles, and stellate fibroblasts. There is a lymphohistiocytic infiltrate within the dermis. 1:36 PM CDT DERMATOPATHOLOGY LABORATORY Disclaimer An external and internal positive and negative controls are appropriate for the histochemical, immunohistochemical and immunofluorescence stain(s) in this case (if any), except where stated explicitly. The performance characteristics of the stain(s) cited in this report were developed and its performance characteristic determined by the Dermatopathology Laboratory at [facility], directed by Dr. Ivelisse Arguello. These tests need not be, and therefore are not, approved by the [place] Food and Drug Administration. The tests are used for clinical purposes. Billing Codes Specimen Charges Stain Charges 02400 1 5 1:36 PM CDT DERMATOPATHOLOGY LABORATORY Embedded Images 5 1:36 PM CDT DERMATOPATHOLOGY LABORATORY Pathology/Cytolo gy TISSUE SPECIMEN FROM SKIN / Unknown 03/01/2025 3:33 AM CDT 03/01/2025 2:30 PM CDT Sena Ndiaye DO LAB - PATHOLOGY/CYTOLOGY ORDERA BLES Final Result DERMATOPATHOLOGY LABORATORY [facility] of Dermatology [address], [address] [phone] * (ABNORMAL) HEMOGLOBIN A1C (09/22/2018 11:29 PM CDT) Hemoglobin A1c 8.8(H) 4.2 - 6.3 % 09/23/2018 12:03 AM CDT [facility] Estimated Average Glucose 206 mg/dL 09/23/2018 12:03 AM CDT [facility] Blood BLOOD SPECIMEN / Unknown Venipuncture / Unknown 09/22/2018 11:29 PM CDT 09/22/2018 11:33 PM CDT Wolfgang Cordova DO LAB - CHEMISTRY ORDERABLES Final Result [facility] [address] [place] [address] from Last 3 Months or Most Recently Relevant to Health Maintenance Insurance [employer] [address] MANAGED MEDICARE [facility] MANAGED MEDICARE ADV [facility] MANAGED MEDICARE ADV * Guarantor: KARLY ASHBY Account Type Relation to Patient Date of Phone Billing Address Personal/Family Spouse Advance Directives * Full Code (Latest Code Status on File) Date Activated Date Inactivated Comments 09/24/2018 11:50 AM 09/28/2018 2:09 PM * Full Code Date Activated Date Inactivated Comments 09/22/2018 12:37 PM 09/24/2018 11:50 AM * FULL RESUSCITATION Date Activated Date Inactivated Comments 10/24/2013 5:13 PM 10/27/2013 1:50 PM * Full Code Date Activated Date Inactivated Comments 02/25/2010 1:29 PM 03/01/2010 12:51 AM * Full Code Date Activated Date Inactivated Comments 02/23/2010 5:29 PM 02/25/2010 1:29 PM Care Teams Lawn Sprinkler Servicer Relationship Specialty Start Date End Date Ella Merchant MD PCP - General Internal Medicine 10/24/13 [place] [address] [facility] [address] [place] [address] Pulmonary Disease 01/04/19 Mariano Hodge MD [address] [facility] [address] [place] [address] Cardiovascular Disease 01/04/19 [place] [id number] [address] Orthopedic Surgery 02/13/19
--- OUTSIDE RECORDS SUMMARY | 2025-05-31 15:26 | XMS_ITS | Clinical Summary ---
Author Organization [facility] Address [address] [place] [address] Care Team Providers Care Paralegal Secretary Name Role Phone Unavailable Primary Care Provider Unavailabl e Allergies No known active allergies Medications Apixaban (Eliquis) 5 MG tablet Take 1 tablet (5 mg total) by mouth 2 (two) times a day for 30 days. 60 tablet 8 Active glipiZIDE (GLUCOTROL) 5 MG tablet Take 1 tablet (5 mg total) by mouth 2 (two) times a day with Breakfast and Dinner for 30 days. 60 tablet 8 Active polyethylene glycol (MIRALAX) packet Take 17 g by mouth once a day. 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 Hemiplegic gait 09/25/2018 Cerebrovascular accident 09/24/2018 Social History Tobacco Use Types Packs/Day Years Used Date Smoking Tobacco: Never Smokeless Tobacco: Never Alcohol Use Standard Drinks/Week Comments No 0 (1 standard drink = 0.6 oz pur e alcohol) Sex and Gender Information Value Date Recorded Sex Assigned at Not on file Legal Sex Male 8:24 AM EST Gender Identity Not on file Sexual Orientation Not on file Last Filed Vital Signs Vital Sign Reading Time Taken Comments Blood Pressure 114/74 09/28/2018 7:00 AM INSTRUCTOR PROGRAMMABLE CONTROLLERS Pulse 77 09/28/2018 7:00 AM INSTRUCTOR PROGRAMMABLE CONTROLLERS Temperature 36.3 C (97.3 F) 09/28/2018 7:00 AM INSTRUCTOR PROGRAMMABLE CONTROLLERS Respiratory Rate 20 09/28/2018 7:00 AM INSTRUCTOR PROGRAMMABLE CONTROLLERS Oxygen Saturation 100% 09/28/2018 7:00 AM INSTRUCTOR PROGRAMMABLE CONTROLLERS Inhaled Oxygen Concentration - - Weight 122.5 kg (270 lb) 09/24/2018 12:41 PM INSTRUCTOR [employer]GRAMM[employer]OLLERS Height 188 cm (6' 2) 09/24/2018 12:41 PM INSTRUCTOR PROGRAMM[employer] CONTROLLERS Body Mass Index 34.67 09/24/2018 12:41 PM INSTRUCTOR PROGRAMMABLE CONTROLLERS Plan of Treatment Not on file Advance Directives * Full Resuscitation (Latest Code Status on File) Date Activated Date Inactivated Comments 09/24/2018 2:03 PM 09/28/2018 4:11 PM
[2025-05-31 15:44] LABS: Hematocrit 43.2 % (37.0-46.0); Hemoglobin 14.1 g/dL (12.4-15.3); Mean Corpuscular HGB Conc 32.6 g/dL (32-36); Mean Corpuscular Hemoglobin 30.3 pg (27.0-31.0); Mean Corpuscular Volume 92.7 fL (78.0-102.0); Platelet Count Result 241 K/mm3 (150-420); Red Blood Count 4.66 M/mm3 (4.70-6.10); White Blood Count 8.1 K/mm3 (4.8-10.8)
[2025-05-31 15:45] LABS: Add Urine Microscopic? NO; Appearance Urine Clear (Clear); Glucose Urine UA Negative (Negative); Leukocyte Esterase Ur Negative (Negative); Nitrate Urine Negative (Negative); Specific Grav Ur <= 1.005 (1.010-1.020)
[2025-05-31 15:56] LABS: Alanine Aminotransferase 25 U/L (6-50); Albumin Level 4.2 g/dL (3.5-5.1); Alkaline Phosphatase 106 U/L (38-126); Anion Gap 9 mmol/L (4-12); Aspartate Amino Transferase 36 U/L (17-59); Bilirubin,Total 1.0 mg/dL (0.2-1.3); Blood Urea Nitrogen 28 mg/dL (9-20); Calcium 9.8 mg/dL (8.4-10.2); Carbon Dioxide 27 mmol/L (22-30); Chloride 105 mmol/L (98-107); Estimated Glomerular Filt Rate > 60; Glucose 86 mg/dL (65-110); Osmolality Calculated 296 mOsm/kg (285-295); Potassium 4.7 mmol/L (3.4-5.0); Sodium 141 mmol/L (137-145); Total Protein 7.6 g/dL (6.3-8.2)
== END 2025-05-31 15:21 | disposition home or self-care (01) ==
LOC: CHSLAB 15:24
PROVIDERS: PCP Internal Medicine; Visit Provider Internal Medicine
DX: R10.31 Right lower quadrant pain (principal); M25.551 Pain in right hip; M54.50 Low back pain, unspecified; R93.41 Abnormal radiologic findings on diagnostic imaging of renal pelvis, ureter, or bladder; N40.0 Benign prostatic hyperplasia without lower urinary tract symptoms; D35.02 Benign neoplasm of left adrenal gland; D35.01 Benign neoplasm of right adrenal gland; R59.0 Localized enlarged lymph nodes; K59.00 Constipation, unspecified; S22.089A Unspecified fracture of T11-T12 vertebra, initial encounter for closed fracture; M51.369 Other intervertebral disc degeneration, lumbar region without mention of lumbar back pain or lower extremity pain
CPT/HCPCS: 36415; 72100; 73502; 74177; 80053; 81003; 85027; 87086; Q9967